=== PATIENT | male | born 2000 ===

== ENCOUNTER 2024-08-01 13:13 | Emergency (ER) | payer MEDICAID ==
[~2024-08-01] VITALS: Ht 172.7 cm; Wt 68.0 kg
[2024-08-01 13:28] VITALS: O2SAT 96
[2024-08-01] MEDS: LIDOCAINE HCL/PF 1% 10 MG/ML 5ML VIAL INFIL ONE (14:15)
[2024-08-01] MEDS: TETANUS, DIPHTHERIA, PERTUSSIS VAC/PF 0.5ML (>10YR OLD) IM ONE (14:26)
[2024-08-01] MEDS ORDERED: BO1 TP (15:32)
[2024-08-01] MEDS ORDERED: CEPH500T MT (15:32)
[2024-08-01 16:26] VITALS: BP 123/88; PULSE 46; RESP 14; TEMP 37; O2SAT 100
== END 2024-08-01 16:33 | disposition home or self-care (01) ==
LOC: ER 13:13
DX: S51.811A Laceration without foreign body of right forearm, initial encounter (principal); Y93.89 Activity, other specified; Y92.89 Other specified places as the place of occurrence of the external cause; Y99.8 Other external cause status
CPT/HCPCS: 73090; 90715; 12002; 90471; 99283; J2003; Z7610 ×2